=== PATIENT | male | born 1985 | race Caucasian/White ===

== ENCOUNTER 2022-01-11 13:14 | Emergency (ER) | payer SELFPAY ==
[~2022-01-11] VITALS: Ht 182.8 cm; Wt 70.4 kg
[2022-01-11 13:21] VITALS: BP 118/76
[2022-01-11] MEDS ORDERED: GBPN600T PO (13:31)
[2022-01-11] MEDS ORDERED: ESCI10TA PO (13:31)
--- NOTE | 2022-01-11 13:31 | ED General ---
General Chief Complaint: General Problems/Pain Stated Complaint: MED FILL - GABAPENTIN & LEXAPRO Nursing Triage Note: PT RECENTLY MOVED HERE FROM [place]. NEEDING GABAPENTIN AND LEXAPRO REFILLED. HASN'T GOTTEN ESTABLISHED WITH NEW PROVIDER. BEEN OUT OF MEDS X3 DAYS. Source of Information: Patient Exam Limitations: No Limitations (BERNA العراقي) History of Present Illness Date Seen by Provider: January 11, 2022 Time Seen by Provider: 13:28 Initial Comments Patient is a 36-year-old male who presents the ED for refill of his gabapentin and Lexapro. Recently moved from [facility] 2 weeks ago. Currently establishing care with a primary care physician. He has been off his medication for the past 3 to 4 days. Reports nerve pain in his lower extremities with history of lumbar radiculopathy. No bowel or urine incontinence, saddle paresthesia. Also reports increased mood swings states Lexapro typically helps with his depression and control his moods. He is only requesting a few days worth of medication till he can follow-up with a primary care physician. Has no other complaints such as suicidal homicidal thoughts, headache, dizziness, nausea, vomiting, diarrhea. (BERNA العراقي) Allergies and Home Medications Patient Home Medication List Home Medication List Reviewed: Yes (BERNA العراقي) Escitalopram Oxalate (Lexapro) 10 Mg Tablet, 10 MG PO DAILY Prescribed by: DANIKA MAYBERRY on 01/11/22 1331 Gabapentin (Gabapentin) 600 Mg Tablet, 600 MG PO BID Prescribed by: DANIKA MAYBERRY on 01/11/22 1331 Review of Systems Review of Systems Constitutional: No chills EENTM: No ear pain, No blurred vision, No double vision Respiratory: No cough, No dyspnea on exertion Cardiovascular: No chest pain Gastrointestinal: No abdominal pain, No diarrhea, No nausea, No vomiting Genitourinary: No decreased output, No discharge Musculoskeletal: back pain Psychiatric/Neurological: Anxiety, Depressed (BERNA العراقي) All Other Systems Reviewed Negative Unless Noted: Yes (BERNA العراقي) Past Vrkuxzc-Wkkwop-Dfkdzv Hx Patient Social History Tobacco Use?: Yes Tobacco type used: Cigarettes Smoking Status: Current Everyday Smoker Use of E-Cig and/or Vaping dev: No Substance use?: No Alcohol Use?: No Pt feels they are or have been: No (BERNA العراقي) Immunizations Up To Date Influenza Vaccine Up-to-Date: No; Not Current Second COVID19 Vaccination Jose Alfredo: 06/08 (BERNA العراقي) Physical Exam Vital Signs Vital Signs - First Documented 01/11/22 13:21 Temp 36.9 Pulse 90 Resp 16 B/P (MAP) 118/76 (90) Pulse Ox 96 O2 Delivery Room Air (ALEXY YOUNG MD) Vital Signs Capillary Refill : Less Than 3 Seconds (BERNA العراقي) Height, Weight, BMI Height: '" Weight: lbs. oz. kg; 21.00 BMI Method: General Appearance: No Apparent Distress, WD/WN Eyes: Bilateral Eye Normal Inspection, Bilateral Eye PERRL, Bilateral Eye EOMI HEENT: PERRL/EOMI, TMs Normal, Normal ENT Inspection, Pharynx Normal Neck: Full Range of Motion, Normal Inspection, Non Tender, Supple Respiratory: Chest Non Tender, Lungs Clear, Normal Breath Sounds Cardiovascular: Regular Rate, Rhythm, No Edema, No Gallop, No JVD Gastrointestinal: Normal Bowel Sounds, No Organomegaly, No Pulsatile Mass, Non Tender Back: Normal Inspection, No CVA Tenderness, No Vertebral Tenderness Extremity: Normal Capillary Refill, Normal Inspection, Normal Range of Motion, Non Tender, No Calf Tenderness Neurologic/Psychiatric: Alert, Oriented x3, No Motor/Sensory Deficits, Normal Mood/Affect, hand shaker II-XII Norm as Tested Skin: Normal Color, Warm/Dry (BERNA العراقي) Progress/Results/Core Measures Suspected Sepsis SIRS Temperature: Pulse: 90 Respiratory Rate: 16 Blood Pressure 118 /76 Mean: 90 (BERNA العراقي) Results/Orders Vital Signs/I&O 01/11/22 13:21 Temp 36.9 Pulse 90 Resp 16 B/P (MAP) 118/76 (90) Pulse Ox 96 O2 Delivery Room Air (ALEXY YOUNG MD) Vital Signs/I&O Capillary Refill : Less Than 3 Seconds (BERNA العراقي) Blood Pressure Mean: 90 Departure Communication (PCP) Patient requesting medication refill. Recently moved to the area. Currently establishing care with primary care physician. Recommend follow-up with [facility] for further evaluation. Refilled his gabapentin and Lexapro for a few days. Patient in no acute distress. No neurological red flag findings. Return precaution were discussed with patient. (BERNA العراقي) Impression Primary Impression: Medication refill Disposition: HOME, SELF-CARE Condition: Stable Departure-Patient Inst. Decision time for Depature: 13:29 (BERNA العراقي) Referrals: [facility],LOCAL PHYSICIAN (PCP) Primary Care Physician Patient Instructions: Medication Safety, Adult Add. Discharge Instructions: Recommend following up with [facility] for further evaluation. All discharge instructions reviewed with patient and/or family. Voiced understanding. Scripts Gabapentin (Gabapentin) 600 Mg Tablet 600 MG PO BID, #30 TAB Prov: BERNA العراقي 01/11/22 Escitalopram Oxalate (Lexapro) 10 Mg Tablet 10 MG PO DAILY, #20 TAB Prov: BERNA العراقي 01/11/22 ATTENDING PHYSICIAN NOTE: I was physically present as attending physician in the emergency department during the care of this patient, but I was not directly involved in the decision making or delivery of care for this patient. (ALEXY YOUNG MD) BERNA العراقي January 11, 2022 13:31 ALEXY YOUNG MD January 11, 2022 22:00
== END 2022-01-11 13:44 | disposition home or self-care (01) ==
LOC: ER 13:16
DX: Z76.0 Encounter for issue of repeat prescription (principal); F32.A Depression, unspecified; F17.210 Nicotine dependence, cigarettes, uncomplicated
CPT/HCPCS: 99281